=== PATIENT | male | born 1990 | race African-American/Black ===

== ENCOUNTER 2019-08-18 21:23 | Emergency (ER) | payer OTHER ==
[2019-08-19 00:21] LABS: APPEARANCE,URINE CLEAR; BILIRUBIN,URINE NEGATIVE (NEGATIVE); COLOR,URINE YELLOW; GLUCOSE, URINE NEGATIVE (NEGATIVE); KETONES,URINE NEGATIVE (NEGATIVE); LEUKOCYTE ESTERASE,URINE NEGATIVE (NEGATIVE); NITRITE,URINE NEGATIVE (NEGATIVE); PROTEIN,URINE 30 mg/dL (NEGATIVE); UROBILINOGEN,URINE NEGATIVE mg/dL (<2.0)
[2019-08-19] MEDS ORDERED: NORMAL SALINE 1000 ML 1,000 ML IV ONE ×3 (03:10→04:56)
--- NOTE | 2019-08-19 03:12 | ER Document Report ---
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 He states that on Friday he started feeling poorly, over the past 2 to 3 days he has started feeling worse and his urine got dark and almost "reddish-looking" this evening. He denies history of rhabdomyolysis. He reports history of orthopedic surgeries, takes no daily medications, denies smoking, alcohol, recreational drugs, or any supplements. TRAVEL OUTSIDE OF THE [place] IN LAST 30 DAYS: No - Related Data Allergies/Adverse Reactions: No Known Allergies Allergy (Unverified 08/18/19 23:52) Past Medical History - General Information source: Patient - Social History Smoking Status: Former Smoker Frequency of alcohol use: None Drug Abuse: None Lives with: Alone Family History: Reviewed & Not Pertinent Patient has suicidal ideation: No Patient has homicidal ideation: No - Medical History Medical History: Negative Past Surgical History: Reports: Hx Orthopedic Surgery - Immunizations Immunizations up to date: Yes Hx Diphtheria, Pertussis, Tetanus Vaccination: Yes Review of Systems - Review of Systems Constitutional: No symptoms reported EENT: No symptoms reported Cardiovascular: No symptoms reported Respiratory: No symptoms reported Gastrointestinal: No symptoms reported Genitourinary: See HPI Male Genitourinary: No symptoms reported Musculoskeletal: See HPI Skin: No symptoms reported Hematologic/Lymphatic: No symptoms reported Neurological/Psychological: No symptoms reported Physical Exam - Vital signs Vitals: Temp Pulse Resp BP Pulse Ox 98.5 F 59 L 16 137/75 H 99 08/18/19 21:58 08/18/19 21:58 08/18/19 21:58 08/18/19 21:58 08/18/19 21:58 - Notes Notes: GENERAL: Alert, interacts well. Patient does not move stiffly but is otherwise in no distress HEAD: Normocephalic, atraumatic. EYES: Pupils equal, round, and reactive to light. Extraocular movements intact. ENT: Oral mucosa moist, tongue midline. Oropharynx unremarkable. Airway patent. NECK: Full range of motion. Supple. Trachea midline. LUNGS: Clear to auscultation bilaterally, no wheezes, rales, or rhonchi. No respiratory distress. HEART: Regular rate and rhythm. No murmur ABDOMEN: Soft, non-tender. Non-distended. Bowel sounds present in all 4 quadrants. GENITOURINARY: Deferred EXTREMITIES: Moves all 4 extremities spontaneously. Patient does have stiffness and has difficulty extending his arms at the elbows. Strength normal in all extremities. No edema, normal radial and dorsalis pedis pulses bilaterally. No cyanosis. BACK: no cervical, thoracic, lumbar midline tenderness. No saddle anesthesia, normal distal neurovascular exam. NEUROLOGICAL: Alert and oriented x3. Normal speech. Cranial nerves II through XII grossly intact. PSYCH: Normal affect, normal mood. SKIN: Warm, dry, normal turgor. No rashes or lesions noted. Course - Re-evaluation Re-evalutation: Patient with stiff arms, his urine is concerning with positive blood in the dipstick but none seen on the slide, I am concerned this is myoglobin. Clinical picture is very suggestive of rhabdomyolysis. CBC nonspecific, chemistry shows elevated AST, borderline creatinine, CK is very elevated at greater than 70,000. Patient has been given 2 boluses of IV fluid so far. Patient will require admission for rhabdomyolysis. I did discuss with patient, he states agreement. Discussed with Dr. Griffin. 08/19/19 06:[address] Belle, hospitalist, patient will be excepted to the medical floor. 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 Pending callback and discussion with hospitalist at [facility]. 08/19/19 07:[address] speak with Dr. Palomino and patient is excepted for transfer to [facility]. Accepting physician is Dr. Maurer. I did discuss the situation with our nursing inventory control supervisor and Dr. Griffin. - Vital Signs Vital signs: Temp Pulse Resp BP Pulse Ox 97.8 F 59 L 15 127/77 H 100 08/19/19 05:23 08/19/19 05:23 08/19/19 05:23 08/19/19 05:23 08/19/19 05:23 - Laboratory Result Diagrams: 08/19/19 03:35 08/19/19 03:35 Laboratory results interpreted by me: 08/18/19 08/19/19 08/19/19 23:59 03:35 03:35 RDW 15.7 H BUN 26 H AST 832 H Creatine Kinase 29336 H Urine Protein 30 H Urine Blood LARGE H Discharge - Discharge Clinical Impression: Elevated AST (SGOT), Elevated CK Rhabdomyolysis Qualifiers: Rhabdomyolysis type: non-traumatic Qualified Code(s): M62.82 - Rhabdomyolysis Condition: Stable Disposition: [facility]
[2019-08-19 03:46] LABS: ABSOLUTE EOSINOPHILS # (AUTO) 0.1 10^3/uL (0.0-0.6); ABSOLUTE LYMPHOCYTES (AUTO) 2.4 10^3/uL (0.5-4.7); ABSOLUTE MONOCYTES (AUTO) 0.4 10^3/uL (0.1-1.4); ABSOLUTE NEUT (AUTO) 2.7 10^3/uL (1.7-8.2); BASOPHILS % (AUTO) 0.6 % (0-2); EOSINOPHILS % (AUTO) 1.2 % (0-6); HEMATOCRIT 44.6 % (37.9-51.0); HEMOGLOBIN 14.7 g/dL (13.5-17.0); LYMPHOCYTES % (AUTO) 42.4 % (13-45); MEAN CORPUSCULAR HEMOGLOBIN 27.1 pg (27.0-33.4); MEAN CORPUSCULAR VOLUME 82 fl (80-97); MONOCYTES % (AUTO) 7.8 % (3-13); PLATELET COUNT 222 10^3/uL (150-450); RED BLOOD COUNT 5.43 10^6/uL (4.35-5.55); RED CELL DISTRIBUTION WIDTH 15.7 % (11.5-14.0); TOTAL CELLS COUNTED % (AUTO) 100 %; WHITE BLOOD COUNT 5.6 10^3/uL (4.0-10.5)
[2019-08-19 03:59] LABS: ALBUMIN 4.6 g/dL (3.5-5.0); ALKALINE PHOSPHATASE 73 U/L (38-126); ANION GAP 8 (5-19); BILIRUBIN,DIRECT 0.1 mg/dL (0.0-0.4); BILIRUBIN,TOTAL 0.5 mg/dL (0.2-1.3); BLOOD UREA NITROGEN 26 mg/dL (7-20); CALCIUM 9.9 mg/dL (8.4-10.2); CARBON DIOXIDE 28 mmol/L (22-30); CHLORIDE 107 mmol/L (98-107); GLUCOSE 87 mg/dL (75-110); POTASSIUM 4.4 mmol/L (3.6-5.0); TOTAL PROTEIN 7.9 g/dL (6.3-8.2)
[2019-08-19 04:10] LABS: ASPARTATE AMINO TRANSFERASE 832 U/L (17-59)
[2019-08-19 05:02] LABS: CREATINE KINASE 70268 U/L (55-170)
[2019-08-19] MEDS ORDERED: NORMAL SALINE 1000 ML 1,000 ML IV PRN (06:22)
[2019-08-19 08:54] VITALS: BP 124/82
--- NOTE | 2019-08-19 09:03 | Progress Note ---
Provider Note Provider Note: Pt evaluated. He is stable for transfer. He is doing well.
== END 2019-08-19 09:00 ==
LOC: ER 21:23 → EH 08-19 06:36 → UNDOADMIN 08-19 06:36 → ER 08-19 09:00
DX: M62.82 Rhabdomyolysis (principal); R74.0 Nonspecific elevation of levels of transaminase and lactic acid dehydrogenase [LDH]; R74.8 Abnormal levels of other serum enzymes; M25.50 Pain in unspecified joint; R31.9 Hematuria, unspecified; Z87.891 Personal history of nicotine dependence
CPT/HCPCS: 99284; 96360; 96361; 36415; 82550; 85025; 80053; 81001; J7030